=== PATIENT | female | born 2005 | race Caucasian/White ===

== ENCOUNTER → 2024-04-16 16:12 | Outpatient (CLI) | payer OTHER, MEDICAID, SELFPAY ==
--- NOTE | 2024-04-16 16:16 | DI.RAD.S_ITS ---
PROCEDURE: XR FINGER RT MIN 2V INDICATIONS: caught football wrong, pain 4th digit TECHNIQUE: AP hand, 2 views of the 4th finger(s) acquired. COMPARISON: None. FINDINGS: Bones: Small calcification over radial aspect of 4th PIP joint is seen concerning for acute avulsion injury in this area. No suspicious bony lesions. Soft tissues: No suspicious soft tissue calcifications. IMPRESSION: Finding is concerning for avulsion injury involving radial and volar aspect of 4th PIP joint suggest clinical correlation for focal pain in this area. No other fracture or dislocation. Dictated by: Francisco Navarro M.D. on 04/16/2024 at 17:07 Approved by: Francisco Navarro M.D. on 04/16/2024 at 17:11
== END ==
PROVIDERS: Referring Provider Physician Assistant; Visit Provider Physician Assistant
DX: S69.91XA Unspecified injury of right wrist, hand and finger(s), initial encounter (principal); X58.XXXA Exposure to other specified factors, initial encounter
CPT/HCPCS: 73140